=== PATIENT | male | born 1950 | race Caucasian/White ===

== ENCOUNTER 2020-06-05 17:46 | Emergency (ER) | payer OTHER ==
[~2020-06-05] VITALS: Ht 172.7 cm; Wt 113.4 kg
[2020-06-05 17:54] VITALS: BP 145/89
== END 2020-06-05 20:02 | disposition left against medical advice (07) ==
LOC: M.ERS 17:46
DX: R05 Cough (principal); Z53.21 Procedure and treatment not carried out due to patient leaving prior to being seen by health care provider